=== PATIENT | female | born 1960 | race Hispanic/Latino ===

== ENCOUNTER 2017-09-28 09:02 | Emergency (ER) | payer MEDICAID, OTHER ==
[2017-09-28 09:07] VITALS: BMI 32.8
[2017-09-28 09:08] VITALS: RESP 20
--- NOTE | 2017-09-28 10:44 | RAD ---
HISTORY: COMPARISON: 06/24/2016. TECHNIQUE: Chest PA and lateral FINDINGS: LINES AND TUBES: None. LUNG AND PLEURA: The lungs are hyperinflated and there is peribronchial thickening with chronic changes in both lungs. No focal consolidation. HEART AND MEDIASTINUM: The heart is not enlarged. The hilar and mediastinal contours are within normal limits. SKELETAL STRUCTURES: The bony structures are within normal limits for the patient's age. VISUALIZED UPPER ABDOMEN: Normal. OTHER FINDINGS: There are multiple surgical clips in the left axillary region. IMPRESSION: No active pulmonary disease. COPD.
[2017-09-28 11:40] VITALS: BP 141/89; PULSE 97; TEMP 99.6; O2SAT 97
--- NOTE | 2017-09-28 14:03 | C.PDOC ---
History Of Present Illness 56 year old female presents to the ED for evaluation of congestion, dry cough, and subjective fever which began 3 days ago. Patient reports positive sick contact and notes she received her flu vaccination this year. She denies nausea , vomiting and recent travel at this time. Chief Complaint (Nursing): Cough, Cold, Congestion History Per: Patient History/Exam Limitations: no limitations Onset/Duration Of Symptoms: Days (3) Current Symptoms Are (Timing): Still Present Sick Contacts (Context): Friend(s) Associated Symptoms: Fever, Cough, Nasal Congestion. denies: Sputum Ear Symptoms: Bilateral: None Recent travel outside of the [place]: No Additional History Per: Patient Past Medical History Reviewed: Historical Data, Nursing Documentation, Vital Signs Vital Signs: Last Vital Signs Temp 99.6 F 09/28/17 11:37 Pulse 97 H 09/28/17 11:37 Resp 20 09/28/17 11:37 BP 141/89 09/28/17 11:37 Pulse Ox 97 09/28/17 14:06 - Medical History PMH: Anxiety, Depression, Pneumothorax Denies: Chronic Kidney Disease Surgical History: No Surg Hx Family History: States: Unknown Family Hx - Social History Hx Tobacco Use: No Hx Alcohol Use: No Hx Substance Use: No - Immunization History Hx Tetanus Toxoid Vaccination: Yes Hx Influenza Vaccination: Yes Hx Pneumococcal Vaccination: No Review Of Systems Constitutional: Positive for: Fever (subjective) ENT: Positive for: Nose Congestion Respiratory: Positive for: Cough. Negative for: Sputum Gastrointestinal: Negative for: Nausea, Vomiting Physical Exam - Physical Exam Appears: Non-toxic, No Acute Distress Skin: Normal Color, Warm, Dry Head: Atraumatic, Normacephalic Eye(s): bilateral: Normal Inspection Ear(s): Bilateral: Normal Nose: Normal, No Discharge Oral Mucosa: Moist Throat: Normal, No Erythema, No Exudate Neck: Supple Chest: Symmetrical, No Deformity, No Tenderness Cardiovascular: Rhythm Regular, No Murmur Respiratory: Normal Breath Sounds, No Rales, No Rhonchi, No Wheezing Neurological/Psych: Oriented x3, Normal Speech, Normal Cognition ED Course And Treatment O2 Sat by Pulse Oximetry: 97 (on RA) Pulse Ox Interpretation: Normal Medical Decision Making Medical Decision Making: Progress: CXR ordered and reviewed. Tessalon Perles PO and Prednisone PO administered. On reassessment, patient is resting comfortably, showing no signs of distress, and remains afebrile. Patient is stable for discharge and is advised to follow up with his PMD within 3-4 days for further evaluation and/or return to the ED if symptoms persist or worsen. Disposition - Disposition Referrals: Betty Nevarez, [Non-Staff] - Disposition: HOME/ ROUTINE Disposition Time: 10:30 Condition: GOOD Additional Instructions: Thank you for letting us take care of you today. The emergency medical care you received today was directed at your acute symptoms. If you were prescribed any medication, please fill it and take as directed. It may take several days for your symptoms to resolve. Return to the Emergency Department if your symptoms worsen, do not improve, or if you have any other problems. Please contact your doctor or call one of the physicians/clinics you have been referred to that are listed on the Patient Visit Information form that is included in your discharge packet. Bring any paperwork you were given at discharge with you along with any medications you are taking to your follow up visit. Our treatment cannot replace ongoing medical care by a primary care provider (PCP) outside of the emergency department. Thank you for allowing the [facility] team to be part of your care today. Follow up with your doctor in 2-3 days for re-evaluation and further management. Prescriptions: Azithromycin [Zithromax] 250 mg PO DAILY #6 tab predniSONE [Prednisone] 40 mg PO DAILY #10 tab Instructions: Upper Respiratory Infection (ED) Forms: [employer] (Uzbek), Work Excuse - Clinical Impression Clinical Impression: Upper respiratory infection - Scribe Statement The provider has reviewed the documentation as recorded by the Scribe (Luly Ortiz) Provider Attestation: All medical record entries made by the Scribe were at my direction and personally dictated by me. I have reviewed the chart and agree that the record accurately reflects my personal performance of the history, physical exam, medical decision making, and the department course for this patient. I have also personally directed, reviewed, and agree with the discharge instructions and disposition.
== END 2017-09-28 11:40 | disposition home or self-care (01) ==
LOC: C.ER 09:02
DX: J06.9 Acute upper respiratory infection, unspecified (principal)